=== PATIENT | male | born 1955 | race Hispanic/Latino ===

== ENCOUNTER 2022-03-29 07:53 | Inpatient (IN) | payer OTHER, BC ==
[2022-03-29 08:23] LABS: #Eosinphils 0.2 thou/uL (0.0-0.7); #Monocytes 0.7 thou/uL (0.11-0.59); #Neutrophils 8.9 thou/uL (1.40-6.50); %Basophils 0.1 % (0.0-1.0); %Eosinophils 1.3 % (0.0-10.0); %Lymphocytes 23.4 % (21.0-51.0); %Monocytes 5.6 % (0.0-10.0); %Neutrophils 69.7 % (42.0-75.0); Hemoglobin 13.8 g/dL (14.0-18.0); Mean Corpuscular Hemoglobin 30.5 pg (27.0-31.0); Mean Corpuscular Volume 95.1 fl (78.0-98.0); Mean Platelet Volume 7.4 fL (7.4-10.4); Platelet Count 272 10x3/uL (130-400); RBC Distribution Width 12.7 % (11.5-14.5); Red Blood Cell (RBC) Count 4.52 mill/uL (4.70-6.10); White Blood Cell (WBC) Count 12.8 10x3/uL (4.8-10.8)
[2022-03-29 08:42] LABS: ALT (SGPT) 117 U/L (8-55); AST (SGOT) 179 U/L (5-34); Albumin 3.9 g/dL (3.4-4.8); Alkaline Phosphatase 77 U/L (40-110); Anion Gap 15 mmol/L (10-20); BUN (Urea Nitrogen) 9 mg/dL (8.4-25.7); Bilirubin, Total 0.7 mg/dL (0.2-1.2); Calc. Creatinine Clearance 0 mL/min (70-130); Calcium 8.4 mg/dL (7.8-10.44); Carbon Dioxide 21 mmol/L (23-31); Chloride 102 mmol/L (98-107); Estimated GFR 98; Globulin 2.9 g/dL (2.4-3.5); Glucose 130 mg/dL (80-115); Potassium 3.7 mmol/L (3.5-5.1); Protein, Total 6.8 g/dL (5.8-8.1); Sodium 134 mmol/L (136-145)
[2022-03-29 08:43] LABS: Acetaminophen Less than 10.0 mcg/mL (10.0-30.0); Alcohol 17 mg/dL (Less than 10); Lipase 102 U/L (8-78); Salicylate Less than 8.0 mg/dL (15.0-30.0)
[2022-03-29] MEDS ORDERED: CEFAZOLIN 2 GM VIAL ONE ×2 (09:03→17:10)
[2022-03-29] MEDS ORDERED: Boostrix 0.5 ML (Tdap) VIAL (>/=7 yrs of age) ONE (09:03)
[2022-03-29] MEDS ORDERED: CEFAZOLIN 2 GM in Sodium Chloride 0.9% 100 ML IVPB SCH (12:15)
[2022-03-29 12:25] LABS: SARS-CoV-2 NAA Rapid Test Not Detected (NotDetected)
[2022-03-29] MEDS ORDERED: hydrALAZINE 20 MG/ML VIAL SLOW IVP PRN (13:09)
[2022-03-29] MEDS ORDERED: Dextrose 5% in Water 1,000 ML IV PRN (13:09)
[2022-03-29] MEDS ORDERED: Ondansetron ODT 4 MG TAB PO PRN (13:09)
[2022-03-29] MEDS ORDERED: TETANUS, DIPHTHERIA TOX,ADULT (TDVAX) 0.5 ML VIAL IM ONE (13:09)
[2022-03-29] MEDS ORDERED: Morphine 4 MG/ML VIAL SLOW IVP PRN ×3 (13:09→19:28)
[2022-03-29] MEDS ORDERED: Dextrose 50% Abboject 50 ML SYRINGE SLOW IVP PRN (13:09)
[2022-03-29] MEDS ORDERED: Ondansetron PF 4 MG/2 ML Vial IVP PRN (13:09)
[2022-03-29] MEDS ORDERED: traMADol HCl 50 MG TAB PO PRN (13:16)
[2022-03-29 13:21] LABS: Amphetamine Not Detected (NotDetected); Barbiturates Screen Not Detected (NotDetected); Benzodiazepine Screen Not Detected (NotDetected); Cocaine Metabolite Screen Not Detected (NotDetected); Methadone Not Detected (NotDetected); Methamphetamine Not Detected (NotDetected); Opiate Screen Not Detected (NotDetected); Oxycodone Screen Not Detected (NotDetected); Phencyclidine (PCP) Not Detected (NotDetected); THC/Cannabinoid Screen Not Detected (NotDetected); Tricyclic Screen Not Detected (NotDetected)
[2022-03-29 13:35] LABS: Bacteria/HPF None Seen HPF (None Seen); Bilirubin Negative (Negative); Blood, Urine 3+ (Negative); Clarity Clear (Clear); Glucose, Urine (Dipstick) Normal (Negative); Ketone, Urine 20 mg/dL (Negative); Leukocyte Negative Leu/uL (Negative); Nitrite Negative (Negative); Protein, Urine (Dipstick) 50 mg/dL (Neg-Trace); RBC/HPF Greater than 50 HPF (0-3); Squamous Epithelial 0-3 HPF (0-3); Urobilinogen Normal mg/dL (Less than 2)
[2022-03-29 13:37] LABS: Specific Gravity, Urine 1.053 (1.002-1.036)
[2022-03-29] MEDS: Sodium Chloride 0.9% 1,000 ML IV SCH ×2 (13:40→22:09)
[2022-03-29] MEDS ORDERED: Acetaminophen 500 MG TAB PO SCH ×2 (13:45→18:00)
[2022-03-29] MEDS ORDERED: traMADol HCl 50 MG TAB PO SCH ×2 (13:45→18:00)
[2022-03-29] MEDS: Oxazepam 10 MG CAP PO SCH ×2 (13:50→21:57)
[2022-03-29] MEDS ORDERED: Gabapentin 100 MG CAP PO SCH (14:00)
[2022-03-29 14:02] LABS: Magnesium 2.3 mg/dL (1.6-2.6); Phosphorus 2.6 mg/dL (2.3-4.7)
[2022-03-29 14:18] VITALS: BMI 25.0
[2022-03-29] MEDS ORDERED: Iopamidol-370 76% 500 ML 1 ML ONE (15:26)
[2022-03-29] MEDS ORDERED: Sodium Chloride 0.9% 100 ML ONE (17:10)
[2022-03-29] MEDS ORDERED: Ondansetron PF 4 MG/2 ML Vial ONE (17:24)
[2022-03-29] MEDS ORDERED: Ketorolac Tromethamine 30 MG/ML VIAL ONE (17:24)
[2022-03-29] MEDS ORDERED: ePHEDrine 50 MG/ML VIAL ONE (17:24)
[2022-03-29] MEDS ORDERED: PROPOFOL 200 MG/20 ML VIAL ONE (17:24)
[2022-03-29] MEDS ORDERED: Fentanyl 250 MCG/5 ML VIAL ONE (17:51)
[2022-03-29] MEDS ORDERED: Ketorolac Tromethamine 30 MG/ML VIAL IVP SCH (18:00)
[2022-03-29] MEDS ORDERED: Acetaminophen/Codeine 30-300mg Tablet PO PRN (19:27)
[2022-03-29] MEDS ORDERED: Cyclobenzaprine 10 MG TAB PO PRN (19:28)
[2022-03-29] MEDS ORDERED: Ondansetron HCl/PF 4 MG/2 ML Vial IVP PRN (19:40)
[2022-03-29] MEDS ORDERED: Promethazine HCl 25 MG/ML VIAL IVPB PRN (19:40)
[2022-03-29] MEDS ORDERED: HYDROmorphone 2 MG/ML VIAL SLOW IVP PRN (19:40)
[2022-03-29] MEDS ORDERED: Promethazine HCl 25 MG/ML VIAL IM PRN (19:40)
[2022-03-29] MEDS: Acetaminophen/Codeine 30-300mg Tablet PO SCH (20:34)
[2022-03-29] MEDS: Amoxicillin/Potassium Clav 875 MG TAB PO SCH (20:35)
[2022-03-29] MEDS: Senokot S 8.6-50 MG TAB PO SCH (20:36)
[2022-03-29] MEDS: Gabapentin 100 MG CAP PO SCH (21:57)
[2022-03-29] MEDS: Acetaminophen 500 MG TAB PO SCH (23:51)
[2022-03-30] MEDS: CEFAZOLIN 2 GM in Sodium Chloride 0.9% 100 ML IVPB SCH ×3 (01:27→16:58)
[2022-03-30] MEDS: Acetaminophen/Codeine 30-300mg Tablet PO SCH ×4 (01:31→20:42)
[2022-03-30 06:28] LABS: #Monocytes 0.6 thou/uL (0.11-0.59); #Neutrophils 6.5 thou/uL (1.40-6.50); %Basophils 0.2 % (0.0-1.0); %Eosinophils 0.2 % (0.0-10.0); %Lymphocytes 12.8 % (21.0-51.0); %Monocytes 6.9 % (0.0-10.0); %Neutrophils 79.8 % (42.0-75.0); Hemoglobin 9.7 g/dL (14.0-18.0); Mean Corpuscular HGB CONC 32.9 g/dL (32.0-36.0); Mean Corpuscular Hemoglobin 31.2 pg (27.0-31.0); Mean Corpuscular Volume 94.7 fl (78.0-98.0); Mean Platelet Volume 7.2 fL (7.4-10.4); Platelet Count 180 10x3/uL (130-400); RBC Distribution Width 12.6 % (11.5-14.5); Red Blood Cell (RBC) Count 3.11 mill/uL (4.70-6.10); White Blood Cell (WBC) Count 8.1 10x3/uL (4.8-10.8)
[2022-03-30 06:29] LABS: INR-International Normal Ratio 1.2; PTT 31.9 sec (22.9-36.1); Prothrombin Time 15.4 sec (12.0-14.7)
[2022-03-30 06:36] LABS: Anion Gap 9 mmol/L (10-20); BUN (Urea Nitrogen) 16 mg/dL (8.4-25.7); Calc. Creatinine Clearance 89 mL/min (70-130); Calcium 7.7 mg/dL (7.8-10.44); Carbon Dioxide 22 mmol/L (23-31); Chloride 107 mmol/L (98-107); Estimated GFR 98; Glucose 114 mg/dL (80-115); Magnesium 2.2 mg/dL (1.6-2.6); Sodium 134 mmol/L (136-145)
[2022-03-30 06:38] LABS: CK (CPK) 1358 U/L (30-200); Phosphorus 2.2 mg/dL (2.3-4.7)
[2022-03-30] MEDS: Oxazepam 10 MG CAP PO SCH ×3 (06:45→20:43)
[2022-03-30] MEDS: Gabapentin 100 MG CAP PO SCH ×3 (06:45→20:41)
[2022-03-30] MEDS: Acetaminophen 500 MG TAB PO SCH (06:46)
[2022-03-30] MEDS: Sodium Chloride 0.9% 1,000 ML IV SCH (08:51)
[2022-03-30] MEDS: Folic Acid 1 MG TAB PO SCH (08:52)
[2022-03-30] MEDS: Famotidine 20 MG TAB PO SCH ×2 (08:52→20:43)
[2022-03-30] MEDS: Senokot S 8.6-50 MG TAB PO SCH ×2 (08:53→20:42)
[2022-03-30] MEDS: Multivitamin W/ Minerals 1 TAB PO SCH (08:54)
[2022-03-30] MEDS: Thiamine 100 MG TAB PO SCH (08:54)
[2022-03-30] MEDS: Saccharomyces boulardii 250 MG CAP PO SCH (08:54)
[2022-03-30] MEDS ORDERED: Sodium Phosphate 30 MMOL in Sodium Chloride 0.9% 250 ML 250 ML IVPB SCH (09:00)
[2022-03-30] MEDS ORDERED: cefTRIAXone\\ROCEPHIN 1 GM in Sodium Chloride 0.9% 100 ML IVPB SCH (09:00)
[2022-03-30] MEDS: Amoxicillin/Potassium Clav 875 MG TAB PO SCH ×2 (09:10→20:41)
[2022-03-30] MEDS: Polyethylene Glycol 3350 17 GM Packet PO SCH (12:01)
[2022-03-31] MEDS: Acetaminophen/Codeine 30-300mg Tablet PO SCH ×4 (01:10→21:28)
[2022-03-31] MEDS: CEFAZOLIN 2 GM in Sodium Chloride 0.9% 100 ML IVPB SCH (01:11)
[2022-03-31] MEDS: Oxazepam 10 MG CAP PO SCH ×3 (05:39→21:34)
[2022-03-31] MEDS: Gabapentin 100 MG CAP PO SCH ×3 (05:39→21:29)
[2022-03-31 06:00] LABS: #Eosinphils 0.1 thou/uL (0.0-0.7); #Lymphocytes 1.5 thou/uL (1.20-3.40); #Monocytes 0.8 thou/uL (0.11-0.59); #Neutrophils 7.1 thou/uL (1.40-6.50); %Basophils 0.5 % (0.0-1.0); %Eosinophils 0.7 % (0.0-10.0); %Lymphocytes 15.8 % (21.0-51.0); %Monocytes 8.6 % (0.0-10.0); %Neutrophils 74.4 % (42.0-75.0); Hemoglobin 8.4 g/dL (14.0-18.0); Mean Corpuscular HGB CONC 33.1 g/dL (32.0-36.0); Mean Corpuscular Hemoglobin 31.8 pg (27.0-31.0); Mean Corpuscular Volume 95.8 fl (78.0-98.0); Mean Platelet Volume 7.3 fL (7.4-10.4); Platelet Count 170 10x3/uL (130-400); RBC Distribution Width 12.3 % (11.5-14.5); Red Blood Cell (RBC) Count 2.64 mill/uL (4.70-6.10); White Blood Cell (WBC) Count 9.6 10x3/uL (4.8-10.8)
[2022-03-31 06:38] LABS: Anion Gap 10 mmol/L (10-20); BUN (Urea Nitrogen) 8 mg/dL (8.4-25.7); CK (CPK) 774 U/L (30-200); Calc. Creatinine Clearance 97 mL/min (70-130); Calcium 8.1 mg/dL (7.8-10.44); Carbon Dioxide 24 mmol/L (23-31); Chloride 106 mmol/L (98-107); Estimated GFR 101; Glucose 99 mg/dL (80-115); Magnesium 2.4 mg/dL (1.6-2.6); Phosphorus 1.6 mg/dL (2.3-4.7); Sodium 136 mmol/L (136-145)
[2022-03-31] MEDS: Amoxicillin/Potassium Clav 875 MG TAB PO SCH ×2 (07:57→21:27)
[2022-03-31] MEDS: Senokot S 8.6-50 MG TAB PO SCH ×2 (07:58→21:27)
[2022-03-31] MEDS: Thiamine 100 MG TAB PO SCH (07:58)
[2022-03-31] MEDS: Multivitamin W/ Minerals 1 TAB PO SCH (07:58)
[2022-03-31] MEDS: Folic Acid 1 MG TAB PO SCH (07:58)
[2022-03-31] MEDS: Saccharomyces boulardii 250 MG CAP PO SCH (07:58)
[2022-03-31] MEDS: Famotidine 20 MG TAB PO SCH ×2 (07:58→21:27)
[2022-03-31] MEDS: Polyethylene Glycol 3350 17 GM Packet PO SCH (07:58)
[2022-03-31] MEDS ORDERED: Sodium Phosphate 30 MMOL in Sodium Chloride 0.9% 250 ML 250 ML IVPB SCH (09:00)
[2022-03-31] MEDS: Enoxaparin Sodium 40 MG/0.4 ML SYRINGE SC SCH (09:34)
[2022-04-01] MEDS: Acetaminophen/Codeine 30-300mg Tablet PO SCH ×4 (02:18→20:51)
[2022-04-01] MEDS: Gabapentin 100 MG CAP PO SCH ×3 (05:16→20:49)
[2022-04-01] MEDS: Oxazepam 10 MG CAP PO SCH ×3 (05:16→20:50)
[2022-04-01 07:29] LABS: #Lymphocytes 1.1 thou/uL (1.20-3.40); #Monocytes 0.6 thou/uL (0.11-0.59); %Basophils 0.3 % (0.0-1.0); %Eosinophils 0.6 % (0.0-10.0); %Lymphocytes 14.3 % (21.0-51.0); %Monocytes 8.1 % (0.0-10.0); %Neutrophils 76.8 % (42.0-75.0); Hemoglobin 8.3 g/dL (14.0-18.0); Mean Corpuscular HGB CONC 33.3 g/dL (32.0-36.0); Mean Corpuscular Hemoglobin 31.4 pg (27.0-31.0); Mean Corpuscular Volume 94.3 fl (78.0-98.0); Mean Platelet Volume 7.2 fL (7.4-10.4); Platelet Count 201 10x3/uL (130-400); RBC Distribution Width 11.9 % (11.5-14.5); Red Blood Cell (RBC) Count 2.64 mill/uL (4.70-6.10); White Blood Cell (WBC) Count 7.8 10x3/uL (4.8-10.8)
[2022-04-01 07:32] LABS: Anion Gap 13 mmol/L (10-20); BUN (Urea Nitrogen) 11 mg/dL (8.4-25.7); Calc. Creatinine Clearance 109 mL/min (70-130); Calcium 8.4 mg/dL (7.8-10.44); Carbon Dioxide 19 mmol/L (23-31); Chloride 104 mmol/L (98-107); Estimated GFR 105; Glucose 97 mg/dL (80-115); Magnesium 2.2 mg/dL (1.6-2.6); Phosphorus 1.8 mg/dL (2.3-4.7); Potassium 3.7 mmol/L (3.5-5.1); Sodium 132 mmol/L (136-145)
[2022-04-01] MEDS ORDERED: Potassium Phosphate 30 MMOL in Sodium Chloride 0.9% 250 ML 250 ML IVPB SCH (08:00)
[2022-04-01] MEDS: Thiamine 100 MG TAB PO SCH (08:38)
[2022-04-01] MEDS: Famotidine 20 MG TAB PO SCH ×2 (08:38→20:50)
[2022-04-01] MEDS: Senokot S 8.6-50 MG TAB PO SCH ×2 (08:38→20:50)
[2022-04-01] MEDS: Enoxaparin Sodium 40 MG/0.4 ML SYRINGE SC SCH (08:38)
[2022-04-01] MEDS: Saccharomyces boulardii 250 MG CAP PO SCH (08:38)
[2022-04-01] MEDS: Folic Acid 1 MG TAB PO SCH (08:39)
[2022-04-01] MEDS: Polyethylene Glycol 3350 17 GM Packet PO SCH (08:39)
[2022-04-01] MEDS: Multivitamin W/ Minerals 1 TAB PO SCH (08:39)
[2022-04-01] MEDS: Amoxicillin/Potassium Clav 875 MG TAB PO SCH ×2 (08:39→20:49)
[2022-04-01] MEDS ORDERED: Furosemide 20 MG/2 ML VIAL SLOW IVP SCH (11:30)
[2022-04-02] MEDS: Acetaminophen/Codeine 30-300mg Tablet PO SCH ×4 (01:46→20:12)
[2022-04-02] MEDS: Oxazepam 10 MG CAP PO SCH ×3 (05:12→20:12)
[2022-04-02] MEDS: Gabapentin 100 MG CAP PO SCH ×3 (05:12→20:10)
[2022-04-02 05:48] LABS: #Eosinphils 0.2 thou/uL (0.0-0.7); #Lymphocytes 1.4 thou/uL (1.20-3.40); #Monocytes 0.7 thou/uL (0.11-0.59); #Neutrophils 4.7 thou/uL (1.40-6.50); %Basophils 0.3 % (0.0-1.0); %Eosinophils 2.6 % (0.0-10.0); %Lymphocytes 20.1 % (21.0-51.0); %Monocytes 9.7 % (0.0-10.0); %Neutrophils 67.3 % (42.0-75.0); Hemoglobin 8.1 g/dL (14.0-18.0); Mean Corpuscular HGB CONC 33.1 g/dL (32.0-36.0); Mean Corpuscular Hemoglobin 31.2 pg (27.0-31.0); Mean Corpuscular Volume 94.3 fl (78.0-98.0); Mean Platelet Volume 6.7 fL (7.4-10.4); Platelet Count 253 10x3/uL (130-400)
[2022-04-02 06:04] LABS: Anion Gap 10 mmol/L (10-20); BUN (Urea Nitrogen) 12 mg/dL (8.4-25.7); Calc. Creatinine Clearance 104 mL/min (70-130); Calcium 8.3 mg/dL (7.8-10.44); Carbon Dioxide 25 mmol/L (23-31); Chloride 102 mmol/L (98-107); Estimated GFR 103; Glucose 102 mg/dL (80-115); Magnesium 2.2 mg/dL (1.6-2.6); Phosphorus 2.6 mg/dL (2.3-4.7); Potassium 3.6 mmol/L (3.5-5.1); Sodium 133 mmol/L (136-145)
[2022-04-02] MEDS: Thiamine 100 MG TAB PO SCH (08:33)
[2022-04-02] MEDS: Famotidine 20 MG TAB PO SCH ×2 (08:33→20:13)
[2022-04-02] MEDS: Polyethylene Glycol 3350 17 GM Packet PO SCH (08:33)
[2022-04-02] MEDS: Senokot S 8.6-50 MG TAB PO SCH ×2 (08:33→20:14)
[2022-04-02] MEDS: Enoxaparin Sodium 40 MG/0.4 ML SYRINGE SC SCH (08:34)
[2022-04-02] MEDS: Folic Acid 1 MG TAB PO SCH (08:34)
[2022-04-02] MEDS: Saccharomyces boulardii 250 MG CAP PO SCH (08:34)
[2022-04-02] MEDS: Multivitamin W/ Minerals 1 TAB PO SCH (08:34)
[2022-04-02] MEDS: Amoxicillin/Potassium Clav 875 MG TAB PO SCH ×2 (08:34→20:13)
[2022-04-03] MEDS: Acetaminophen/Codeine 30-300mg Tablet PO SCH ×4 (02:12→20:30)
[2022-04-03] MEDS: Gabapentin 100 MG CAP PO SCH ×3 (04:56→20:30)
[2022-04-03] MEDS: Oxazepam 10 MG CAP PO SCH ×3 (04:57→20:31)
[2022-04-03] MEDS: Senokot S 8.6-50 MG TAB PO SCH ×2 (09:16→20:31)
[2022-04-03] MEDS: Polyethylene Glycol 3350 17 GM Packet PO SCH (09:16)
[2022-04-03] MEDS: Amoxicillin/Potassium Clav 875 MG TAB PO SCH ×2 (09:21→20:31)
[2022-04-03] MEDS: Famotidine 20 MG TAB PO SCH ×2 (09:21→20:31)
[2022-04-03] MEDS: Folic Acid 1 MG TAB PO SCH (09:21)
[2022-04-03] MEDS: Saccharomyces boulardii 250 MG CAP PO SCH (09:21)
[2022-04-03] MEDS: Thiamine 100 MG TAB PO SCH (09:21)
[2022-04-03] MEDS: Multivitamin W/ Minerals 1 TAB PO SCH (09:21)
[2022-04-03] MEDS: Enoxaparin Sodium 40 MG/0.4 ML SYRINGE SC SCH (09:21)
[2022-04-04] MEDS: Acetaminophen/Codeine 30-300mg Tablet PO SCH ×4 (02:01→21:15)
[2022-04-04] MEDS: Gabapentin 100 MG CAP PO SCH ×3 (06:19→21:15)
[2022-04-04] MEDS: Oxazepam 10 MG CAP PO SCH ×3 (06:19→21:15)
[2022-04-04] MEDS: Amoxicillin/Potassium Clav 875 MG TAB PO SCH ×2 (09:27→21:15)
[2022-04-04] MEDS: Enoxaparin Sodium 40 MG/0.4 ML SYRINGE SC SCH (09:27)
[2022-04-04] MEDS: Saccharomyces boulardii 250 MG CAP PO SCH (09:27)
[2022-04-04] MEDS: Thiamine 100 MG TAB PO SCH (09:28)
[2022-04-04] MEDS: Famotidine 20 MG TAB PO SCH ×2 (09:28→21:15)
[2022-04-04] MEDS: Folic Acid 1 MG TAB PO SCH (09:28)
[2022-04-04] MEDS: Senokot S 8.6-50 MG TAB PO SCH ×2 (15:30→21:15)
[2022-04-04] MEDS: Polyethylene Glycol 3350 17 GM Packet PO SCH (15:30)
[2022-04-04] MEDS: Multivitamin W/ Minerals 1 TAB PO SCH (19:48)
[2022-04-05] MEDS: Acetaminophen/Codeine 30-300mg Tablet PO SCH ×4 (01:55→19:35)
[2022-04-05] MEDS: Gabapentin 100 MG CAP PO SCH ×2 (05:29→17:26)
[2022-04-05] MEDS: Oxazepam 10 MG CAP PO SCH ×2 (05:29→17:28)
[2022-04-05] MEDS: Thiamine 100 MG TAB PO SCH (10:07)
[2022-04-05] MEDS: Enoxaparin Sodium 40 MG/0.4 ML SYRINGE SC SCH (10:07)
[2022-04-05] MEDS: Amoxicillin/Potassium Clav 875 MG TAB PO SCH ×2 (10:09→20:13)
[2022-04-05] MEDS: Folic Acid 1 MG TAB PO SCH (10:09)
[2022-04-05] MEDS: Multivitamin W/ Minerals 1 TAB PO SCH (10:09)
[2022-04-05] MEDS: Famotidine 20 MG TAB PO SCH ×2 (10:09→20:13)
[2022-04-05] MEDS: Saccharomyces boulardii 250 MG CAP PO SCH (10:09)
[2022-04-05] MEDS: Polyethylene Glycol 3350 17 GM Packet PO SCH (10:10)
[2022-04-05] MEDS: Senokot S 8.6-50 MG TAB PO SCH ×2 (10:10→20:13)
[2022-04-06] MEDS: Acetaminophen/Codeine 30-300mg Tablet PO SCH ×3 (00:59→15:10)
[2022-04-06] MEDS: Oxazepam 10 MG CAP PO SCH ×3 (00:59→15:10)
[2022-04-06] MEDS: Gabapentin 100 MG CAP PO SCH ×3 (00:59→15:10)
[2022-04-06] MEDS: Enoxaparin Sodium 40 MG/0.4 ML SYRINGE SC SCH (10:23)
[2022-04-06] MEDS: Amoxicillin/Potassium Clav 875 MG TAB PO SCH (10:24)
[2022-04-06] MEDS: Famotidine 20 MG TAB PO SCH (10:25)
[2022-04-06] MEDS: Thiamine 100 MG TAB PO SCH (10:25)
[2022-04-06] MEDS: Folic Acid 1 MG TAB PO SCH (10:25)
[2022-04-06] MEDS: Saccharomyces boulardii 250 MG CAP PO SCH (10:25)
[2022-04-06] MEDS: Multivitamin W/ Minerals 1 TAB PO SCH (10:25)
[2022-04-06] MEDS: Polyethylene Glycol 3350 17 GM Packet PO SCH (10:26)
[2022-04-06] MEDS: Senokot S 8.6-50 MG TAB PO SCH (10:26)
[2022-04-06 12:07] VITALS: BP 140/90; TEMP 98.1
== END 2022-04-06 15:10 | DRG 956 ==
LOC: ERS 07:53 → IMCU/EMU 13:18 → SURG B 03-30 19:20
PROVIDERS: ADMIT Surgery; ATTEND Surgery
PROC: 0QSB04Z Reposition Right Lower Femur with Internal Fixation Device, Open Approach (ICD-10-PCS; principal; 2022-03-29)
PROC: 0HQ0XZZ Repair Scalp Skin, External Approach (ICD-10-PCS; 2022-03-29)
DX: S72.491B Other fracture of lower end of right femur, initial encounter for open fracture type I or II (principal); S06.5X0A Traumatic subdural hemorrhage without loss of consciousness, initial encounter; S06.6X0A Traumatic subarachnoid hemorrhage without loss of consciousness, initial encounter; S02.40FA Zygomatic fracture, left side, initial encounter for closed fracture; S02.32XA Fracture of orbital floor, left side, initial encounter for closed fracture; S22.41XA Multiple fractures of ribs, right side, initial encounter for closed fracture; S82.041A Displaced comminuted fracture of right patella, initial encounter for closed fracture; S27.0XXA Traumatic pneumothorax, initial encounter; Z20.822 Contact with and (suspected) exposure to COVID-19; S01.01XA Laceration without foreign body of scalp, initial encounter; R40.2362 Coma scale, best motor response, obeys commands, at arrival to emergency department; R40.2142 Coma scale, eyes open, spontaneous, at arrival to emergency department; R40.2252 Coma scale, best verbal response, oriented, at arrival to emergency department; G93.89 Other specified disorders of brain; F07.81 Postconcussional syndrome; V49.40XA Driver injured in collision with unspecified motor vehicles in traffic accident, initial encounter
CPT/HCPCS: 12002; 36415; 70450; 70486; 71045; 71260; 72125; 74177; 80048; 80053; 80306; 80307; 81003; 81015; 82550; 83690; 83735; 84100; 84484; 85025; 85610; 85730; 86850; 86900; 86901; 87811; 90471; 90715; 93005; 96365; C1713; G0390; J1650; J1885; J1940; J2270; J2405; J2704; J3010; J3490; J7050; Q9967; U0002

== ENCOUNTER 2022-04-22 13:52 | Outpatient (CLI) | payer BC | END 2022-04-22 13:53 | disposition home or self-care (01) | LOC: BICCT 13:52 | PROVIDERS: ATTEND Physician Assistant Surgical | DX: S06.5XAD Traumatic subdural hemorrhage with loss of consciousness status unknown, subsequent encounter (principal) | CPT/HCPCS: 70450 ==

== ENCOUNTER 2022-05-03 14:37 | Outpatient (CLI) | payer BC | END 2022-05-03 14:38 | disposition home or self-care (01) | LOC: BICRAD 14:37 | PROVIDERS: ATTEND Surgery | DX: S22.49XA Multiple fractures of ribs, unspecified side, initial encounter for closed fracture (principal) | CPT/HCPCS: 71046 ==

== ENCOUNTER 2024-04-15 13:35 | Inpatient (IN) | payer MEDICARE, OTHER ==
[~2024-04-15 13:35] MED LIST: Iopamidol-370 76% 500 ML MDV (1 ML CHARGE) ONE
[2024-04-15 14:04] LABS: #Basophils 0.05 10x3/uL (0.0-0.2); #Eosinophils Less than 0.03 10x3/uL (0.0-0.7); %Basophils 0.4 % (0.0-1.0); %Lymphocytes 10.3 % (21.0-51.0); %Monocytes 11.2 % (0.0-10.0); %Neutrophils 77.9 % (42.0-75.0); Hematocrit 41.9 % (42.0-52.0); Hemoglobin 14.4 g/dL (14.0-18.0); Mean Corpuscular HGB CONC 34.4 g/dL (32.0-36.0); Mean Corpuscular Hemoglobin 30.1 pg (27.0-31.0); Mean Corpuscular Volume 87.5 fL (78.0-98.0); Mean Platelet Volume 8.6 fL (7.4-10.4); Platelet Count 178 10x3/uL (130-400); RBC Distribution Width 13.2 % (11.5-14.5); Red Blood Cell (RBC) Count 4.79 mill/uL (4.70-6.10)
[2024-04-15] MEDS ORDERED: Ondansetron PF 4 MG/2 ML Vial ONE (14:04)
[2024-04-15] MEDS ORDERED: Labetalol HCl 100 MG/20 ML VIAL ONE (14:04)
[2024-04-15] MEDS ORDERED: levETIRAcetam 500 MG (5 mL) VIAL ONE (14:04)
[2024-04-15 14:20] LABS: ALT (SGPT) 64 U/L (8-55); AST (SGOT) 134 U/L (5-34); Acetaminophen Less than 10 mcg/mL (Less than 10); Albumin 4.1 g/dL (3.4-4.8); Alcohol Less than 10.0 mg/dL (Less than 10); Alkaline Phosphatase 111 U/L (40-110); Anion Gap 14 mmol/L (10-20); BUN (Urea Nitrogen) 10 mg/dL (8.4-25.7); Bilirubin, Total 1.4 mg/dL (0.2-1.2); Calc. Creatinine Clearance 0 mL/min (70-130); Calcium 8.8 mg/dL (7.8-10.44); Carbon Dioxide 21 mmol/L (23-31); Chloride 95 mmol/L (98-107); Estimated GFR 94; Globulin 4.2 g/dL (2.4-3.5); Glucose 105 mg/dL (80-115); Potassium 3.9 mmol/L (3.5-5.1); Protein, Total 8.3 g/dL (5.8-8.1); Salicylate Less than 8.0 mg/dL (Less than 8.0); Sodium 126 mmol/L (136-145)
[2024-04-15 14:23] LABS: INR-International Normal Ratio 1.1; Prothrombin Time 14.7 sec (12.0-14.7); Troponin I 0.015 ng/mL (< 0.028)
[2024-04-15 14:24] LABS: PTT 32.2 sec (22.9-36.1)
[2024-04-15] MEDS ORDERED: Acetaminophen 500 MG TAB ONE (15:18)
[2024-04-15 15:45] LABS: Bacteria/HPF None Seen HPF (None Seen); Bilirubin Negative (Negative); Blood, Urine Negative (Negative); CAUTI Indications for Culture Alt mental st,lethar; Clarity Clear (Clear); Glucose, Urine (Dipstick) Normal (Negative); Ketone, Urine Negative (Negative); Leukocyte Negative Leu/uL (Negative); Nitrite Negative (Negative); Protein, Urine (Dipstick) Negative (Neg-Trace); RBC/HPF 0-3 HPF (0-3); Specific Gravity, Urine 1.032 (1.002-1.036); Squamous Epithelial None Seen HPF (0-3); Urobilinogen 3 mg/dL (Less than 2); WBC/HPF 0-3 HPF (0-3)
[2024-04-15] MEDS ORDERED: Dexamethasone 10 MG/ML VIAL ONE (15:46)
[2024-04-15 15:52] LABS: Urine Culture Reflex No No
[2024-04-15 15:53] LABS: Amphetamine Not Detected (NotDetected); Barbiturates Screen Not Detected (NotDetected); Benzodiazepine Screen Not Detected (NotDetected); Cocaine Metabolite Screen Not Detected (NotDetected); Methadone Not Detected (NotDetected); Methamphetamine Not Detected (NotDetected); Opiate Screen Not Detected (NotDetected); Oxycodone Screen Not Detected (NotDetected); Phencyclidine (PCP) Not Detected (NotDetected); THC/Cannabinoid Screen Not Detected (NotDetected); Tricyclic Screen Not Detected (NotDetected)
[2024-04-15] MEDS ORDERED: Ondansetron ODT 4 MG TAB PO PRN (18:42)
[2024-04-15] MEDS ORDERED: niCARdipine 25 MG in Sodium Chloride 0.9% 250 ML 250 ML IVPB PRN (18:42)
[2024-04-15] MEDS ORDERED: Electrolyte Replacement Protocol 1 EACH IVPB PRN (18:42)
[2024-04-15] MEDS ORDERED: Ondansetron PF 4 MG/2 ML Vial IVP PRN (18:42)
[2024-04-15] MEDS: Famotidine 20 MG TAB PO SCH (20:23)
[2024-04-15] MEDS: levETIRAcetam 500 MG TAB PO SCH (20:23)
[2024-04-15 20:45] VITALS: BMI 22.9
[2024-04-16 06:21] LABS: #Basophils Less than 0.03 10x3/uL (0.0-0.2); #Eosinophils Less than 0.03 10x3/uL (0.0-0.7); %Basophils 0.2 % (0.0-1.0); %Lymphocytes 7.7 % (21.0-51.0); %Monocytes 3.5 % (0.0-10.0); %Neutrophils 88.2 % (42.0-75.0); Hematocrit 39.9 % (42.0-52.0); Hemoglobin 13.8 g/dL (14.0-18.0); Mean Corpuscular HGB CONC 34.6 g/dL (32.0-36.0); Mean Corpuscular Hemoglobin 30.5 pg (27.0-31.0); Mean Corpuscular Volume 88.3 fL (78.0-98.0); Platelet Count 186 10x3/uL (130-400); RBC Distribution Width 13.1 % (11.5-14.5); Red Blood Cell (RBC) Count 4.52 mill/uL (4.70-6.10)
[2024-04-16 06:40] LABS: Hemoglobin A1c 5.1 % (4.0-6.0)
[2024-04-16 06:45] LABS: ALT (SGPT) 55 U/L (8-55); AST (SGOT) 88 U/L (5-34); Albumin 3.7 g/dL (3.4-4.8); Alkaline Phosphatase 112 U/L (40-110); Anion Gap 14 mmol/L (10-20); BUN (Urea Nitrogen) 12 mg/dL (8.4-25.7); Bilirubin, Total 0.9 mg/dL (0.2-1.2); Calc. Creatinine Clearance 91 mL/min (70-130); Calcium 8.8 mg/dL (7.8-10.44); Carbon Dioxide 20 mmol/L (23-31); Cardiac Risk 3.8 (Less than 4.5); Chloride 101 mmol/L (98-107); Cholesterol 149 mg/dl (< 200 Desired); Estimated GFR 99; Globulin 4.3 g/dL (2.4-3.5); Glucose 133 mg/dL (80-115); HDL Cholesterol 39 mg/dL (>60 Neg Risk); LDL Cholesterol, Calculated 98 mg/dL; Sodium 131 mmol/L (136-145); Triglycerides 61 mg/dL (Less than 150)
[2024-04-16 07:03] LABS: HBsAg Index 0.31 S/CO (0-0.99); Hep A IgM AB NONREACTIVE (NonReactive); Hep A IgM S/CO 0.17 S/CO (0-0.79); Hep B Core IgM Index 0.07 S/CO (0-0.79); Hep B Surf Ag NONREACTIVE S/CO (NonReactive); Hep C IgG Ab NONREACTIVE S/CO (NonReactive); Hepatitis B Core IgM Abs NONREACTIVE S/CO (NonReactive)
[2024-04-16] MEDS: Dexamethasone 4 MG TAB PO SCH (09:09)
[2024-04-16] MEDS: hydrALAZINE 20 MG/ML VIAL SLOW IVP PRN (10:36)
[2024-04-16] MEDS: Losartan 25 MG TAB PO SCH (13:11)
[2024-04-16] MEDS: Amlodipine 10 MG TAB PO SCH (13:12)
[2024-04-16] MEDS: Labetalol HCl 100 MG/20 ML VIAL SLOW IVP PRN (14:56)
[2024-04-16] MEDS: Labetalol HCl 100 MG/20 ML VIAL ONE (15:24)
[2024-04-17] MEDS: Losartan 25 MG TAB PO SCH (08:51)
[2024-04-17] MEDS: Amlodipine 10 MG TAB PO SCH (08:51)
[2024-04-17] MEDS: hydrALAZINE 25 MG TAB PO SCH (10:49)
[2024-04-18 03:52] LABS: #Basophils Less than 0.03 10x3/uL (0.0-0.2); #Eosinophils Less than 0.03 10x3/uL (0.0-0.7); %Basophils 0.1 % (0.0-1.0); %Eosinophils 0.1 % (0.0-10.0); %Lymphocytes 5.8 % (21.0-51.0); %Monocytes 2.4 % (0.0-10.0); %Neutrophils 91.1 % (42.0-75.0); Hematocrit 40.7 % (42.0-52.0); Hemoglobin 13.8 g/dL (14.0-18.0); Mean Corpuscular HGB CONC 33.9 g/dL (32.0-36.0); Mean Corpuscular Volume 88.5 fL (78.0-98.0); Mean Platelet Volume 9.1 fL (7.4-10.4); Platelet Count 192 10x3/uL (130-400)
[2024-04-18 04:01] LABS: Anion Gap 10 mmol/L (10-20); BUN (Urea Nitrogen) 16 mg/dL (8.4-25.7); Calc. Creatinine Clearance 95 mL/min (70-130); Calcium 8.7 mg/dL (7.8-10.44); Carbon Dioxide 22 mmol/L (23-31); Chloride 100 mmol/L (98-107); Estimated GFR 101; Glucose 142 mg/dL (80-115); Sodium 128 mmol/L (136-145)
[2024-04-18] MEDS: Acetaminophen 500 MG TAB PO PRN (04:03)
[2024-04-18] MEDS: Dexamethasone 1 MG TAB PO SCH (09:23)
[2024-04-18 17:25] VITALS: BP 141/65; TEMP 97.8
[2024-04-20] MEDS ORDERED: Dexamethasone 1 MG TAB PO SCH (09:00)
[2024-04-22] MEDS ORDERED: Dexamethasone 1 MG TAB PO SCH (09:00)
== END 2024-04-18 18:11 | disposition home or self-care (01) | DRG 64 ==
LOC: ERS 13:35 → ERHOLD 16:01 → CCU 17:27 → 2SE 04-16 16:02
PROVIDERS: ADMIT Family Medicine; ATTEND Internal Medicine
DX: I62.9 Nontraumatic intracranial hemorrhage, unspecified (principal); G93.41 Metabolic encephalopathy; G93.6 Cerebral edema; U07.1 COVID-19; E87.1 Hypo-osmolality and hyponatremia; I10 Essential (primary) hypertension; R74.01 Elevation of levels of liver transaminase levels; Z82.49 Family history of ischemic heart disease and other diseases of the circulatory system; Z98.890 Other specified postprocedural states; F17.210 Nicotine dependence, cigarettes, uncomplicated; R29.704 NIHSS score 4; Z79.899 Other long term (current) drug therapy
CPT/HCPCS: 36415; 36416; 70450; 70496; 70553; 71045; 80048; 80053; 80061; 80074; 80306; 80307; 81001; 83036; 83605; 83930; 83935; 84484; 85025; 85610; 85730; 86850; 86900; 86901; 87040; 87428; 93005; 94760; 96374; 96375; J0360; J1100; J1953; J2405; J8540; Q9967

== ENCOUNTER 2025-01-31 08:36 | Outpatient (CLI) | payer OTHER | END 2025-01-31 08:37 | disposition home or self-care (01) | LOC: ULT 08:36 | PROVIDERS: ATTEND Nurse Practitioner Family | DX: R10.11 Right upper quadrant pain (principal); R16.0 Hepatomegaly, not elsewhere classified; K76.0 Fatty (change of) liver, not elsewhere classified | CPT/HCPCS: 76700 ==